=== PATIENT | male | born 1930 | race Caucasian/White ===

== ENCOUNTER → 2017-01-23 | Outpatient (CLI) | payer MEDICARE, BC ==
[~2017-01-23] MED LIST: ASPIRIN PO; POLYTRIM EYE DR10 ML OP; UNKNOWN B/P MED
[2017-01-23 15:09] LABS: BASOPHIL% 0.6 % (0-2.5); EOSINOPHIL# 0.1 X10e3 (0-0.7); EOSINOPHIL% 1.3 % (0.0-7.0); HEMATOCRIT 37.9 % (38.0-50.0); HEMOGLOBIN 12.5 gm/dL (13.0-16.0); LYMPHOCYTE# 1.4 X10e3 (1.0-3.5); LYMPHOCYTE% 19.2 % (17.0-45.0); MEAN CELL VOLUME 83.6 FL (83-96); MEAN CORPUSCULAR HEMOGLOBIN 27.5 PG (28-34); MEAN PLATELET VOLUME 7.6 FL (6.5-11.5); MONOCYTE# 0.5 X10e3 (0-1.0); MONOCYTE% 7.8 % (3.0-12.0); NEUTROPHIL% 71.1 % (40-75); PLATELET COUNT 185 X10e3 (140-420); RED BLOOD COUNT 4.53 X10e (3.90-5.60); RED CELL DISTRIBUTION WIDTH 14.3 % (11.0-15.5)
[2017-01-23 15:12] LABS: DIFF IND NO
[2017-01-23 15:41] LABS: BUN/CREATININE RATIO 17.27; CALCIUM SERUM 9.4 mg/dL (8.4-10.2); CREATININE SERUM 1.1 mg/dL (0.6-1.4); GLOM FILT RATE Estimated 60.9 mL/min (>60); POTASSIUM 3.8 mmol/L (3.5-5.1)
== END | disposition home or self-care (01) ==
LOC: CLAB 14:04
PROVIDERS: Internal Medicine Cardiovascular Disease
DX: I49.5 Sick sinus syndrome (principal)
CPT/HCPCS: 36415; 80048; 85025

== ENCOUNTER 2017-01-24 11:02 | Emergency (ER) | payer MEDICARE, BC ==
--- NOTE | ~2017-01-24 | CT71 ---
[facility] A Service of [facility] RADIOLOGY TEXT RESULTS PATIENT: AUDI DUGGAN LOCATION: [facility] : 32 UNIT #: [id number] AGE: [address]: Addy Joseph MD SEX: M ORDER DR: [id number] [facility] [address] [place], [place] [address] [id number] E MR#: [id number] #: [id number] NAME: AUDI DUGGAN : 1930 SEX: M STUDY DATE/TIME: 01/24/2017 14:22 UNIT: [facility] ROOM: STUDY DESCRIPTION: CT Head Wo Contrast Attending Physician: Addy Joseph M.D. Ordering Physician: Addy Joseph M.D. Primary Care Physician: Josué Capellan M.D. MEDICAL IMAGING REPORT This report is preliminary unless electronic signature is present EXAM CT head, 01/24/17. HISTORY Fell this a.m. Confusion. TECHNIQUE CT head performed skull base through vertex without intravenous contrast. This CT exam was performed with one or more of the following radiation dose reduction techniques: automatic exposure control, adjustment of mA and/or kV according to patient size, and iterative reconstruction. COMPARISON No prior studies for comparison. FINDINGS Brainstem unremarkable. Cerebellum and cerebral hemispheres show normal cline matter-white matter differentiation. No hemorrhage. No acute cortical infarct suggested. Patchy areas of periventricular hypodensity likely reflecting sequelae of chronic microvascular ischemia. 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 There is no clearly acute basal ganglia abnormality. Midline structures are nondisplaced. The ventricles, cisterns and sulci are mildly enlarged suggesting mild generalized atrophy. There is no intra or extraaxial mass effect or abnormal intracranial fluid collection. Extensive cavernous carotid and distal vertebral arterial calcifications. The intraorbital soft tissues are unremarkable. The visualized paranasal sinuses and mastoid air cells are clear. The configuration of the right medial orbital wall raises possibility of old healed right medial orbital wall fracture. No acute-appearing bony abnormality. No acute appearing extracranial soft tissue abnormality. IMPRESSION [facility] A Service of [facility] RADIOLOGY TEXT RESULTS PATIENT: AUD[facility] DUGGAN [id number] [birth year] UNIT #: [id number] AGE: [address]: Addy Joseph MD SEX: M ORDER DR: 1. No acute abnormality is seen in the brain. If the patient has ongoing neurologic symptoms, consider follow up imaging, preferably with MRI if the patient is a candidate. 2. Chronic changes include following: Mild generalized atrophy, periventricular and deep white matter tract probable sequelae of chronic microvascular ischemia, small chronic lacunar infarct right caudate nucleus head, cavernous carotid distal vertebral arterial calcifications. 3. No acute appearing fracture. Appearance of the right medial orbital wall raises possibility of old healed right medial orbital wall fracture. Dictated by... Rigo Luque M.D. THIS IS AN ELECTRONICALLY VERIFIED REPORT Rigo Luque M.D. at 01/26/2017 10:44 PM [facility]/spring TD: 01/24/2017 21:56 JOB #: [id number] MEDICAL IMAGING REPORT Page 1 of 1 COPY
--- NOTE | ~2017-01-24 | CR151 ---
[facility] A Service of [facility] RADIOLOGY TEXT RESULTS PATIENT: AUDI DUGGAN LOCATION: [facility] : 32 UNIT #: [id number] AGE: [address]: Addy Joseph MD SEX: M ORDER DR: [id number] [facility] [address] [place], [place] [address] [id number] E MR#: [id number] #: [id number] NAME: AUDI DUGGAN : 1930 SEX: M STUDY DATE/TIME: 01/24/2017 1335 UNIT: [facility] ROOM: STUDY DESCRIPTION: CR Hip Min 2 Views Rt Attending Physician: Addy Joseph M.D. Ordering Physician: Addy Joseph M.D. Primary Care Physician: Josué Capellan M.D. MEDICAL IMAGING REPORT This report is preliminary unless electronic signature is present EXAM Right hip 2 views 01/24/2017 1335 hours HISTORY 86-year-old man with frequent falls complaining of right hip pain for 5 days. COMPARISON None. FINDINGS AP pelvis and frog lateral view right hip demonstrate overall normal bone density. There are extensive atherosclerotic calcifications. There is no definite hip or pelvic fracture. Sacroiliac joints appear symmetric. Degenerative changes are present in the lower lumbar spine. IMPRESSION 1. No pelvic or hip fracture seen. 2. Extensive atherosclerotic calcifications. 3. 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 Dictated by... Connie Farley M.D. THIS IS AN ELECTRONICALLY VERIFIED REPORT Connie Farley M.D. at 01/25/2017 6:57 PM Radha TD: 01/24/2017 18:18 JOB #: [id number] MEDICAL IMAGING REPORT Page 1 of 1 COPY
[2017-01-24 13:36] LABS: BASOPHIL% 0.7 % (0-2.5); EOSINOPHIL# 0.1 X10e3 (0-0.7); EOSINOPHIL% 1.6 % (0.0-7.0); HEMATOCRIT 37.3 % (38.0-50.0); HEMOGLOBIN 12.6 gm/dL (13.0-16.0); LYMPHOCYTE# 1.2 X10e3 (1.0-3.5); LYMPHOCYTE% 18.7 % (17.0-45.0); MEAN CELL VOLUME 83.4 FL (83-96); MEAN CORPUSCULAR HGB CONC 33.6 g/dL (30-36); MEAN PLATELET VOLUME 7.8 FL (6.5-11.5); MONOCYTE# 0.5 X10e3 (0-1.0); MONOCYTE% 8.1 % (3.0-12.0); NEUTROPHIL# 4.5 X10e3 (1.5-7.1); NEUTROPHIL% 70.9 % (40-75); PLATELET COUNT 170 X10e3 (140-420); RED BLOOD COUNT 4.48 X10e (3.90-5.60); RED CELL DISTRIBUTION WIDTH 14.3 % (11.0-15.5); WHITE BLOOD COUNT 6.4 X10e3 (4.0-10.5)
[2017-01-24 13:37] LABS: DIFF IND NO
[2017-01-24 13:50] LABS: PARTIAL THROMBOPLASTIN TIME 24.7 SECONDS (23.5-31.3)
[2017-01-24 13:57] LABS: ALBUMIN SERUM 4.2 g/dL (3.5-5.0); BILIRUBIN,TOTAL 0.6 mg/dL (0.2-2.0); BUN/CREATININE RATIO 21.25; CREATININE SERUM 0.8 mg/dL (0.6-1.4); GLOM FILT RATE Estimated 81.5 mL/min (>60); POTASSIUM 3.5 mmol/L (3.5-5.1); PROTEIN TOTAL SERUM 7.3 g/dL (6.0-8.3)
== END 2017-01-24 16:51 | disposition home or self-care (01) ==
LOC: CED 11:02
PROVIDERS: Emergency Medicine
DX: M25.551 Pain in right hip (principal); I10 Essential (primary) hypertension; Z79.01 Long term (current) use of anticoagulants; Z95.0 Presence of cardiac pacemaker; W18.39XA Other fall on same level, initial encounter
CPT/HCPCS: 70450; 73502; 80053; 85025; 85610; 85730; 99284